=== PATIENT | female | born 1990 | race African-American/Black ===

== ENCOUNTER 2020-07-05 09:34 | Outpatient (CLI) | payer OTHER | END 2020-07-05 09:35 | disposition home or self-care (01) | LOC: CSHULT 09:34 | PROVIDERS: ATTEND Family Medicine | DX: Z34.82 Encounter for supervision of other normal pregnancy, second trimester (principal) | CPT/HCPCS: 76805 ==

== ENCOUNTER 2020-11-12 05:16 | Inpatient (IN) | payer OTHER ==
[2020-11-12] MEDS ORDERED: hydrALAZINE 20 MG/ML VIAL SLOW IVP PRN ×2 (05:26→21:10)
[2020-11-12] MEDS ORDERED: Acetaminophen 500 MG TAB PO PRN (05:54)
[2020-11-12] MEDS ORDERED: Methylergonovine 0.2 MG/ML VIAL IM PRN (05:54)
[2020-11-12] MEDS ORDERED: Promethazine HCl 25 MG/ML VIAL IM PRN ×2 (05:54→07:58)
[2020-11-12] MEDS ORDERED: Lidocaine 1% (PF) 30 ML VIAL SC PRN (05:54)
[2020-11-12] MEDS ORDERED: Misoprostol 200 MCG TAB PR PRN (05:54)
[2020-11-12] MEDS ORDERED: Ondansetron PF 4 MG/2 ML Vial IVP PRN ×3 (05:54→21:10)
[2020-11-12] MEDS ORDERED: Carboprost 250 MCG/ML AMP IM PRN (05:54)
[2020-11-12] MEDS ORDERED: Butorphanol Tartrate 1 MG/ML VIAL SLOW IVP PRN (05:54)
[2020-11-12] MEDS ORDERED: Ibuprofen 800 MG TAB PO PRN (05:54)
[2020-11-12] MEDS: Lactated Ringer's 1,000 ML IV SCH ×2 (06:04→07:45)
[2020-11-12] MEDS ORDERED: Butorphanol Tartrate 1 MG/ML VIAL ONE (06:10)
[2020-11-12 06:20] VITALS: BMI 32.1
[2020-11-12 06:25] LABS: Hemoglobin 10.3 g/dL (12.0-15.5); Mean Corpuscular HGB CONC 33.7 g/dL (32.0-36.0); Mean Corpuscular Hemoglobin 31.3 pg (27.0-33.0); Platelet Count 269 10x3/uL (150-450); RBC Distribution Width 15.5 % (11.5-14.5); Red Blood Cell (RBC) Count 3.29 10x6/uL (3.90-5.03); White Blood Cell (WBC) Count 10.6 10x3/uL (3.5-10.5)
[2020-11-12 07:01] LABS: Hep B Surf Ag Non-Reactive S/CO (NonReactive)
[2020-11-12 07:02] LABS: Syphilis Antibody Nonreactive (Nonreactive); Syphilis Antibody Index 0.06 S/CO (<1.00 Non-Reactive)
[2020-11-12 07:05] LABS: HBSAg Index 0.18 S/CO (0-0.99)
[2020-11-12] MEDS ORDERED: Fentanyl 2 mcg/Bup 0.1% Cadd 100 ML ONE (07:12)
[2020-11-12] MEDS: Fentanyl 2 mcg/Bupivacaine 0.1% Cassette 100 ML EPIDURAL SCH ×2 (07:53→14:44)
[2020-11-12] MEDS ORDERED: Naloxone HCl 0.4 mg/ml Vial IVP PRN ×2 (07:58)
[2020-11-12] MEDS ORDERED: Lactated Ringer's 500 ML IV PRN (07:58)
[2020-11-12] MEDS ORDERED: diphenhydrAMINE 50 MG/ML VIAL IVP PRN (07:58)
[2020-11-12] MEDS ORDERED: ePHEDrine Sulfate 50 MG/10 ML VIAL SLOW IVP PRN (07:58)
[2020-11-12] MEDS ORDERED: Hydrocerin (Eucerin) Cream 120 gm Jar TOP PRN (07:58)
[2020-11-12] MEDS ORDERED: Acetaminophen 325 MG TAB PO PRN (07:58)
[2020-11-12] MEDS ORDERED: Communication Order-Pharmacy FS SCH (08:00)
[2020-11-12] MEDS: NS w/ Oxytocin 30 units 500 ML IV SCH ×2 (09:35→17:30)
[2020-11-12 11:32] LABS: SARS-CoV-2 NAA Rapid Test DETECTED (NotDetected)
[2020-11-12] MEDS ORDERED: Bupivacaine 0.25% HCL 30 ML VIAL ONE (13:30)
[2020-11-12] MEDS ORDERED: Phytonadione Neonatal 1 MG/0.5 ML AMP ONE (17:20)
[2020-11-12] MEDS ORDERED: Erythromycin Base 0.5% Oint 1 GM TUBE ONE (17:21)
[2020-11-12] MEDS ORDERED: Boostrix 0.5 ML (Tdap) VIAL IM ONE (21:10)
[2020-11-12] MEDS ORDERED: Bisacodyl 10 MG SUPP PR PRN (21:10)
[2020-11-12] MEDS ORDERED: Benzocaine-Menthol 82.5 ML CAN TOP PRN (21:10)
[2020-11-12] MEDS ORDERED: Milk Of Magnesia 30 ML UDCUP PO PRN (21:10)
[2020-11-12] MEDS ORDERED: diphenhydrAMINE 25 MG CAP PO PRN (21:10)
[2020-11-12] MEDS ORDERED: NS w/ Oxytocin 30 units 500 ML IV SCH (21:10)
[2020-11-12] MEDS ORDERED: Ibuprofen 800 MG TAB PO SCH (22:00)
[2020-11-12] MEDS ORDERED: Ferrous Sulfate 325 MG TAB PO SCH (22:00)
[2020-11-12] MEDS ORDERED: Docusate Calcium (SURFAK) 240 MG CAP PO SCH (22:00)
[2020-11-12] MEDS: HYDROcodone/Acetaminophen 5/325 mg Tablet PO PRN (22:25)
[2020-11-13] MEDS: HYDROcodone/Acetaminophen 5/325 mg Tablet PO PRN ×4 (02:45→18:14)
[2020-11-13] MEDS ORDERED: Ferrous Sulfate 325 MG TAB PO SCH (08:00)
[2020-11-13] MEDS ORDERED: Docusate Calcium (SURFAK) 240 MG CAP PO SCH (09:00)
[2020-11-13] MEDS ORDERED: Prenatal Vitamin 1 TAB PO SCH (09:00)
[2020-11-13 17:15] VITALS: BP 114/63; TEMP 97.9
== END 2020-11-13 19:15 | disposition home or self-care (01) | DRG 805 ==
LOC: CSHERS 05:16 → CSHLD 05:54 → CSHPP 21:09
PROVIDERS: ADMIT Family Medicine; ATTEND Family Medicine
PROC: 10E0XZZ Delivery of Products of Conception, External Approach (ICD-10-PCS; principal; 2020-11-12)
PROC: 0HQ9XZZ Repair Perineum Skin, External Approach (ICD-10-PCS; 2020-11-12)
DX: O98.52 Other viral diseases complicating childbirth (principal); U07.1 COVID-19; Z37.0 Single live birth; Z3A.39 39 weeks gestation of pregnancy; O70.0 First degree perineal laceration during delivery
CPT/HCPCS: 36415; 51702; 85027; 86780; 86850; 86900; 86901; 87340; 99285; J0595; J2001; J2590; S0020; U0002

== ENCOUNTER 2023-03-18 14:42 | Emergency (ER) | payer OTHER | END 2023-03-18 16:25 | disposition home or self-care (01) | LOC: CSHERS 14:42 | DX: K13.70 Unspecified lesions of oral mucosa (principal); F17.210 Nicotine dependence, cigarettes, uncomplicated | CPT/HCPCS: 87081; 87430; 99283 ==

== ENCOUNTER 2024-01-15 12:22 | Day surgery (SDC) | payer OTHER ==
[2024-01-15 12:45] VITALS: BMI 31.3
[2024-01-15] MEDS ORDERED: hydrALAZINE 20 MG/ML VIAL SLOW IVP PRN (13:05)
== END 2024-01-15 17:10 | disposition home or self-care (01) ==
LOC: CSHLD/OP 12:22
PROVIDERS: ATTEND Family Medicine
DX: O36.8130 Decreased fetal movements, third trimester, not applicable or unspecified (principal); O99.013 Anemia complicating pregnancy, third trimester; O99.333 Smoking (tobacco) complicating pregnancy, third trimester; F17.200 Nicotine dependence, unspecified, uncomplicated; O99.810 Abnormal glucose complicating pregnancy; O36.5930 Maternal care for other known or suspected poor fetal growth, third trimester, not applicable or unspecified; Z3A.38 38 weeks gestation of pregnancy
CPT/HCPCS: 76815; 76819